=== PATIENT | male | born 1960 ===

== ENCOUNTER 2016-11-02 14:28 | Outpatient (CLI) | payer OTHER ==
--- NOTE | 2016-11-03 07:17 | XRay Report ---
RIGHT RIBS, 3 VIEWS: History: pain. Routine views of the rib cage demonstrate normal mineralization with no significant contour abnormalities, fractures or destructive lesions. PA view of the chest demonstrates no underlying cardiopulmonary abnormalities, fluid or pneumothorax. IMPRESSION: Unremarkable right rib series.
== END 2016-11-02 14:29 | disposition home or self-care (01) ==
LOC: SPVIMAG 14:28
PROVIDERS: ATTEND Family Medicine
DX: R07.81 Pleurodynia (principal)